=== PATIENT | female | born 1975 | race Caucasian/White ===

== ENCOUNTER 2017-01-09 15:10 | Emergency (ER) | payer OTHER ==
[~2017-01-09 15:10] MED LIST: ESTRACE1 MG PO
== END 2017-01-09 17:00 | disposition home or self-care (01) ==
LOC: ER1 15:10
DX: S39.012A Strain of muscle, fascia and tendon of lower back, initial encounter (principal); S80.01XA Contusion of right knee, initial encounter; E11.9 Type 2 diabetes mellitus without complications; Z91.040 Latex allergy status; W18.30XA Fall on same level, unspecified, initial encounter; Y92.009 Unspecified place in unspecified non-institutional (private) residence as the place of occurrence of the external cause; F41.9 Anxiety disorder, unspecified; Z79.899 Other long term (current) drug therapy
CPT/HCPCS: 72100; 73502; 73564; 99283